=== PATIENT | male | born 1955 | race Caucasian/White ===

== ENCOUNTER 2018-01-10 05:25 | Emergency (ER) | payer OTHER ==
--- NOTE | 2018-01-10 06:02 | EDM.PDOC ---
ED HPI GENERAL MEDICAL PROBLEM - General Chief Complaint: Genitourinary Problem Stated Complaint: Urinary retention Time Seen by Provider: 01/10/18 05:26 Source of Information: Reports: Patient, RN, RN Notes Reviewed History Limitations: Reports: No Limitations - History of Present Illness INITIAL COMMENTS - FREE TEXT/NARRATIVE: Patient presents to the ED at [facility] complaining of not being able to void since yesterday afternoon around 2pm. Patient states his last annual exam was 3 weeks ago and his PSA level was slightly elevated. He states the SHAUN was normal, according to his PCP. He states his PSA levels over the past 5 years have been on the high/normal side. No UTI symptoms. No risk for STD. No recent rosas catheter or other instrumentation. No calcium metabolism disorders. Onset Date: 01/09/18 Onset Time: 14:00 lower abdomen Pain Score (Numeric/FACES): 8 - Related Data Allergies Allergy/AdvReac Type Severity Reaction Status Date / Time No Known Allergies Allergy Verified 01/10/18 06:14 Home Meds: Home Meds Adalimumab [Humira] 40 mg IM WEEKLY 01/10/18 [History] Folic Acid 1 mg PO BID 01/10/18 [History] Methotrexate 10 mg PO WEEKLY 01/10/18 [History] ED ROS GENERAL - Review of Systems Review Of Systems: See Below Constitutional: Denies: Fever, Chills, Weakness Respiratory: Denies: Shortness of Breath, Cough Cardiovascular: Denies: Chest Pain, Palpitations GI/Abdominal: Denies: Abdominal Pain, Nausea, Vomiting : Reports: Urinary Retention Skin: Reports: No Symptoms Neurological: Reports: No Symptoms ED EXAM, RENAL/ - Physical Exam Exam: See Below Exam Limited By: No Limitations General Appearance: Alert, No Apparent Distress Respiratory/Chest: No Respiratory Distress, Lungs Clear, Normal Breath Sounds Cardiovascular: Normal Peripheral Pulses, Regular Rate, Rhythm GI/Abdominal: Normal Bowel Sounds, Soft, Non-Tender (Male) Exam: Deferred Neurological: Alert, Oriented Skin Exam: Warm, Dry, Intact, Normal Color Course - Vital Signs Last Recorded V/S: Last Vital Signs Temp 36.3 C 01/10/18 05:30 Pulse 97 01/10/18 05:30 Resp 20 01/10/18 05:30 BP 187/113 H 01/10/18 05:30 Pulse Ox 98 01/10/18 05:30 - Orders/Labs/Meds Orders: Active Orders 24 hr Category Date Time Status Bladder Scan [RC] ONETIME Care 01/10/18 06:03 Active Labs: Laboratory Tests 01/10/18 Range/Units 06:03 Urine Color Yellow (YELLOW) Urine Appearance Clear (CLEAR) Urine pH 5.0 (5.0-8.0) Ur Specific [place] 1.010 Urine Protein Negative (NEGATIVE) mg/dL Urine Glucose (UA) Negative (NEGATIVE) mg/dL Urine Ketones Negative (NEGATIVE) mg/dL Urine Occult Blood Moderate H (NEGATIVE) Urine Nitrite Negative (NEGATIVE) Urine Bilirubin Negative (NEGATIVE) Urine Urobilinogen 0.2 (0.2) EU/dL Ur Leukocyte Esterase Negative (NEGATIVE) Urine RBC 10-20 H (NOT SEEN) /HPF Urine WBC 0-5 (NOT SEEN) /HPF Ur Squamous Epith Cells Rare (NEGATIVE) /HPF Urine Bacteria Not seen (NEGATIVE) /HPF Urine Mucus Not seen (NEGATIVE) /LPF Departure - Departure Time of Disposition: 06:01 Disposition: Home, Self-Care 01 Condition: Good Clinical Impression: Acute urinary retention - Discharge Information Instructions: Clean Intermittent Catheterization, Male, Acute Urinary Retention , Male Forms: ED Department Discharge Additional Instructions: 1. Stay well hydrated and rest 2. If not able to void in the next 6-8 hours, return to this ER 3. Recommend seeing your PCP for further evaluation - Problem List Review Problem List Initiated/Reviewed/Updated: Yes - My Orders Last 24 Hours: My Active Orders 01/10/18 06:03 Bladder Scan [RC] ONETIME - Assessment/Plan Last 24 Hours: My Active Orders 01/10/18 06:03 Bladder Scan [RC] ONETIME Assessment:: Acute urinary retention Plan: Temporary rosas catheter insert. >1000 mls of clear/yellow urine returned. Correlated to bladder scan. UA normal. Recommend follow up with PCP for further evaluation.
== END 2018-01-10 06:36 | disposition home or self-care (01) ==
LOC: VM.ED 05:25
DX: R33.9 Retention of urine, unspecified (principal)
CPT/HCPCS: 51702; 51798; 81001; 99283